=== PATIENT | male | born 1990 | race Caucasian/White ===

== ENCOUNTER 2020-01-01 09:09 | Inpatient (IN) | payer MEDICAID ==
[~2020-01-01] VITALS: Ht 175.3 cm; Wt 88.9 kg
[2020-01-01] MEDS ORDERED: METHYLPREDNISOLONE SOD SUCC 125 MG/2 ML VIAL IV STA (09:10)
[2020-01-01] MEDS ORDERED: MAGNESIUM 2 G PREMIX 50 ML IV STA (09:10)
[2020-01-01] MEDS ORDERED: IPRATROPIUM BROMIDE (0.02%) 0.5MG/2.5ML NEB HHN STA (09:10)
[2020-01-01] MEDS ORDERED: ALBUTEROL (0.083%) 2.5MG/3ML NEB HHN STA (09:10)
[2020-01-01 09:22] LABS: BASOPHILS % 0.2 % (0.0-2.0); EOSINOPHILS % 7.3 % (0.0-5.0); HEMATOCRIT. 50.5 % (42.0-52.0); HEMOGLOBIN. 17.2 g/dL (14.0-18.0); LYMPHOCYTES % 51.2 % (20.0-50.0); MEAN CORPUSCULAR HEMOGLOBIN 29.2 pg (28.0-32.0); MEAN CORPUSCULAR VOLUME 85.8 fL (80.0-94.0); MEAN PLATELET VOLUME 7.5 fl (7.4-10.4); MONOCYTES % 6.9 % (2.0-8.0); NEUTROPHILS % 34.4 % (40.0-76.0); PLATELET 343 x1000/uL (130-400); RED BLOOD CELL COUNT 5.89 mill/uL (4.7-6.1); RED CELL DISTRIBUTION WIDTH 13.7 % (11.6-14.6)
[2020-01-01 09:29] LABS: CHLORIDE 109 mEq/L (98-107)
[2020-01-01 09:34] LABS: ETHANOL BLOOD < 10 mg/dL
[2020-01-01] MEDS ORDERED: AZITHROMYCIN 500 MG in DEXT 5% WATER 250 ML IV STA (10:18)
[2020-01-01 10:24] LABS: *AMPHETAMINES SCREEN URINE NEGATIVE (NEGATIVE); *BARBITURATES SCREEN URINE NEGATIVE (NEGATIVE); *BENZODIAZEPINES SCREEN URINE NEGATIVE (NEGATIVE); CANNABINOID URINE SCREEN NEGATIVE (NEGATIVE); PHENCYCLIDINE URINE SCREEN NEGATIVE (NEGATIVE)
[2020-01-01 10:25] LABS: *COCAINE SCREEN URINE PRESUMTIVE POSITIVE (NEGATIVE); METHADONE URINE SCREEN NEGATIVE (NEGATIVE); OPIATES URINE SCREEN NEGATIVE (NEGATIVE)
[2020-01-01 10:59] LABS: BG BASE EXCESS -5.4 mmol/L (-2.0-2.0); BG BILEVEL POS AIRWAY PRESSURE 15/5; BG CARBOXYHEMOGLOBIN 0.3 % (0.5-1.5); BG DEOXYHEMOGLOBIN 0.4 % (0.0-5.0); BG FRACTION INSPIRED OXYGEN 60; BG HCO3 ACT 16.4 mmol/L (22.0-26.0); BG METHEMOGLOBIN 0.4 % (0.0-1.5); BG OXYGEN SATURATION 99.6 % (92.0-98.5); BG OXYHEMOGLOBIN 98.9 % (94.0-97.0); BG PCO2 24.8 mmHg (35.0-45.0); BG PH 7.438 (7.350-7.450); BG PO2 326.3 mmHg (75.0-100.0); BG SAMPLE SITE RIGHT RADIAL; BG TOTAL HEMOGLOBIN 17.9 g/dL (12.0-18.0); BG VENT MODE MASK - BIPAP; BG VENT RATE 20 set
[2020-01-01 12:30] VITALS: BP_SYST 136; BP_SYST 137; BP_DIAS 82; BP_DIAS 88
[2020-01-01] MEDS ORDERED: IPRATROPIUM/ALBUTEROL 0.5-3(2.5)MG/3ML NEB HHN PRN (14:30)
[2020-01-01] MEDS ORDERED: HYDROCODONE/ACETAMINOPHEN 5/325MG TABLET PO PRN (14:30)
[2020-01-01] MEDS ORDERED: DOCUSATE SODIUM 100MG CAPSULE PO PRN (14:30)
[2020-01-01] MEDS ORDERED: LORAZEPAM 0.5MG TABLET PO PRN (14:30)
[2020-01-01] MEDS ORDERED: ONDANSETRON HCL 4MG/2ML INJ IV PRN (14:30)
[2020-01-01] MEDS ORDERED: GUAIFENESIN 200MG/10ML SUGAR FREE UDC PO PRN (14:30)
[2020-01-01] MEDS ORDERED: ACETAMINOPHEN 325MG TABLET PO PRN ×2 (14:30)
[2020-01-01] MEDS ORDERED: CLONIDINE 0.1MG TABLET PO PRN (14:30)
[2020-01-01] MEDS ORDERED: METHYLPREDNISOLONE SOD SUCC 40 MG/ML VIAL IV SCH (15:00)
[2020-01-01] MEDS ORDERED: PNEUMOCOCCAL 23-VAL P-SAC VAC 0.5 ML IM ONE (16:00)
[2020-01-01 16:14] VITALS: BP 128/78
[2020-01-01] MEDS ORDERED: MONTELUKAST SODIUM 10MG TABLET PO SCH (18:00)
[2020-01-01 20:00] VITALS: BP 135/47
[2020-01-01] MEDS: FAMOTIDINE 20MG TABLET PO SCH (20:17)
[2020-01-02] VITALS: BP 95/71
[2020-01-02 04:00] VITALS: BP 156/85
[2020-01-02 07:06] LABS: CHLORIDE 108 mEq/L (98-107)
[2020-01-02 07:23] LABS: BASOPHILS % 0.1 % (0.0-2.0); HEMATOCRIT. 48.1 % (42.0-52.0); HEMOGLOBIN. 16.2 g/dL (14.0-18.0); LYMPHOCYTES % 7.9 % (20.0-50.0); MEAN CORPUSCULAR HEMOGLOBIN 28.8 pg (28.0-32.0); MEAN CORPUSCULAR VOLUME 85.4 fL (80.0-94.0); MONOCYTES % 6.3 % (2.0-8.0); NEUTROPHILS % 85.7 % (40.0-76.0); RED BLOOD CELL COUNT 5.63 mill/uL (4.7-6.1); RED CELL DISTRIBUTION WIDTH 13.9 % (11.6-14.6)
[2020-01-02 08:00] VITALS: BP 135/72
[2020-01-02] MEDS: FAMOTIDINE 20MG TABLET PO SCH (08:57)
[2020-01-02] MEDS ORDERED: METHYLPREDNISOLONE SOD SUCC 40 MG/ML VIAL IV SCH (09:00)
[2020-01-02 09:56] LABS: PLATELET 320 x1000/uL (130-400)
[2020-01-02] MEDS ORDERED: MED4 MT (10:04)
[2020-01-02] MEDS ORDERED: ALBU6.7H11 INH (10:04)
[2020-01-02] MEDS ORDERED: MONT10TA21 PO (10:04)
[2020-01-02 10:15] VITALS: BP 101/63
== END 2020-01-02 10:30 | disposition home or self-care (01) | DRG 816 ==
LOC: ER 09:16 → 5EST 10:07 → EDBEDREQ 10:30 → ENRESERV 11:32 → ER 12:24
PROVIDERS: ADMIT Internal Medicine; ATTEND Internal Medicine
PROC: 5A09357 Assistance with Respiratory Ventilation, Less than 24 Consecutive Hours, Continuous Positive Airway Pressure (ICD-10-PCS; principal; 2020-01-01)
DX: T40.5X1A Poisoning by cocaine, accidental (unintentional), initial encounter (principal); J96.01 Acute respiratory failure with hypoxia; J45.901 Unspecified asthma with (acute) exacerbation; J68.0 Bronchitis and pneumonitis due to chemicals, gases, fumes and vapors; Y92.89 Other specified places as the place of occurrence of the external cause; Z79.899 Other long term (current) drug therapy; R65.10 Systemic inflammatory response syndrome (SIRS) of non-infectious origin without acute organ dysfunction
CPT/HCPCS: 36415; 36600; 71045; 80048; 80053; 80305; 80320; 82375; 82805; 83605; 83880; 84484; 85025; 90732; 93005; 94640; 94644; 94660; 96365; 99291; J0456; J2920; J2930; J3475; J7060; G0480